=== PATIENT | male | born 1985 | race Caucasian/White ===

== ENCOUNTER 2016-12-14 17:19 | Emergency (ER) | payer OTHER ==
[2016-12-14 17:36] VITALS: BP 135/81; BMI 25.0
--- NOTE | 2016-12-14 19:15 | DR.LACERAT ---
HPI - Time Seen Time seen: 19:15 - Primary Care Physician Primary Care Physician: ZANDER - HPI Comment HPI Comment: SUTURE PLACE YESTERDAY IN [place]. INCREASING PAIN. WORSE WHEN HAND HANG DOWN. NO NEW INJURY. PATIENT SAID HIS PAIN IS CAUSING HIM NOT TO SLEEP. CUT FINGER AT WORK WITH A SAW. - Complaints Chief Complaint Doctors Comments: PAIN LEFT INDEX AND RING FINGER/POST SUTURE PLACEMENT YESTERDAY. Chief Complaint:: PT STATES " HE CUT HIS LEFT INDEX, AND LEFT RING FINGER AND PT WAS SEEN IN ER IN [place] AND HIS LACERATIONS WERE SUTURED.. PT STATES IT IS BLEEDING AND THERE IS AN OPEN AREA AND HER IS HAVING PAIN.. - Reviewed Nurses Notes Reviewed: Yes - Source History Provided: Patient - Mode of Arrival Mode of Arrival: Ambulatory - Timing Onset of Chief Complaint: 12/14/16 - Context Mechanism: denies: Knife (SAW) Circumstance: Work-related Tetanus Vaccination: Yes - Severity Pain Severity: Moderate Bleeding:: Controlled - Associated Signs and Symptoms Associated Signs and Symptoms: None PMH - PMH Past Medical History: Yes Past Medical History Comment: PSORISIS Past Surgical History: No - Family History History of Family Medical Conditions: Yes Family Medical History: Diabetes Mellitus, Cancer, Hypertension - Social History Does patient currently use any type of tobacco product: Yes Have you used tobacco products in the last 12 months: Yes Type of Tobacco Use: Cigarettes How many years tobacco product used: 14 Does any household member use tobacco: No Alcohol Use: None Do you use any recreational Drugs:: No Lives With: Alone Lives Where: Home - infectious screening In the last 2 months have you had wt loss of >10#?: NO Have you had fever, night sweats or hemotysis?: No Have you traveled outside the country in the last 6 months?: No Isolation: Standard ROS - Review of Systems Constitutional: No Symptoms Reported Eyes: No Symptoms Reported ENTM: No Symptoms Reported Respiratoy: No Symptoms Reported Cardiovascular: No Symptoms Reported Gastrointestinal/Abdominal: No Symptoms Reported Genitourinary: No Symptoms Reported Neurological: No Symptoms Reported Musculoskeletal: Left (LEFT INDEX AND RING FINGERS.), Hand Integumentary: Other (FINGER LACERATIONS, POST INJURY.) Hematologic/Lymphatic: No Symptoms Reported Endocrine: No Symptoms Reported All Other Systems: Reviewed and Negative PE - Vital Signs Vitals: Temperature 98.0 F Pulse Rate 75 Respiratory Rate 18 Blood Pressure 135/81 O2 Sat by Pulse Oximetry 98 - General Limitations: No Limitations General Appearance: Alert - Head Head Exam: Normal Inspection - Eyes Eye exam: Normal Appearance - ENT ENT Exam: Normal External Ear Exam - Neck Neck Exam: Trachea Midline - Chest Chest Inspection: Symmetric Chest Wall Rise - Neurologic Neurological Exam: Alert, Oriented X3 - Psychiatric Psychiatric Exam: Anxious - Skin Type of Lesion: Laceration (LT INDEX AND RING FINGERS) - Diagnosis Discharge Problem: Open fracture of finger of left hand Qualifiers: Encounter type: initial encounter Finger: index finger Phalanx: distal Fracture alignment: nondisplaced Qualified Code(s): S62.661B - Nondisplaced fracture of distal phalanx of left index finger, initial encounter for open fracture Laceration of finger of left hand Qualifiers: Encounter type: initial encounter Finger: ring finger Damage to nail status: with damage Foreign body presence: without foreign body Qualified Code(s): S61.315A - Laceration without foreign body of left ring finger with damage to nail, initial encounter - Discharge Plan Disposition: 01 HOME, SELF-CARE Condition: Stable Prescriptions: Acetaminophen with Codeine [Tylenol/Codeine #3 300-30 mg] 1 tab PO Q4-6H PRN # 15 tab PRN Reason: Pain Ibuprofen [MOTRIN TAB 600 MG *] 600 mg PO TID PRN #20 tab PRN Reason: Pain/Inflammation Sulfamethoxazole-Trimethoprim [BACTRIM DS TAB 800/160 MG *] 1 tab PO BID #20 tab - Follow ups/Referrals Follow ups/Referrals: AUBREE SCHNEIDER [STAFF PHYSICIAN] - 1 day Amy FERMIN [Primary Care Provider] - 1 day DEAN MEDEROS [STAFF PHYSICIAN] - 1 day - Instructions Instructions: Laceration Care, Adult, [id number], Finger Fracture Additional Instructions: RETURN TO ED IF WORSE.
[2016-12-14] MEDS ORDERED: TORADOL TAB PO ONE (19:57)
[2016-12-14] MEDS ORDERED: TYLENOL #3 TAB (W/CODEINE) PO ONE (19:57)
[2016-12-14] MEDS ORDERED: BACTRIM DS TAB PO ONE (19:57)
[2016-12-14] MEDS: TORADOL TAB PO ONE (20:00)
[2016-12-14] MEDS: BACTRIM DS TAB PO ONE (20:00)
[2016-12-14] MEDS: TYLENOL #3 TAB (W/CODEINE) PO ONE (20:01)
== END 2016-12-14 20:06 | disposition home or self-care (01) ==
LOC: ER 17:19
DX: S62.661B Nondisplaced fracture of distal phalanx of left index finger, initial encounter for open fracture (principal); S61.315A Laceration without foreign body of left ring finger with damage to nail, initial encounter; W45.8XXA Other foreign body or object entering through skin, initial encounter; Y92.9 Unspecified place or not applicable
CPT/HCPCS: 99283

== ENCOUNTER 2019-01-31 12:11 | Inpatient (IN) ==
[2019-01-31 12:19] VITALS: BMI 28.5
--- NOTE | 2019-01-31 14:34 | DR.EXTPAIN ---
HPI Time seen Time Seen by Provider: 01/31/19 14:20 PCP Primary Care Physician: CHECO HPI Comment HPI Comment: PATIENT IS 33YR OLD MALE IN THE ER WITH INFECTED KNUCKLE FROM INURY 2 WEEKS AGO AND NOW RED, SWOLLEN AND DRAINING PUS. PAIN IS SHARP IN LEFT HAND 8/10 RADIATING TO LEFT FOREARM. PATIENT SAID HE TRY TO DRAIN AT HOME, HE OPEN IT WITH A KNIFE. HE SAID HIS CONDITION IS GETTING WORSE. Complaint/Symptoms Chief Complaint Doctor Comments: LEFT HAND IFECTION AT THE KNUCKLE. DRAINING PUS. Chief Complaint:: TWO WEEKS AGO WORKING ON [employer], SMASHED KNUCKLE. SWOLLEN, RED A ND WARM TO TOUCH. PT STATES THAT PUS CAME OUT OF WOUND. CAN NOT MOVE FINGER OR MAKE FIST WITH LEFT HAND. Self Treatment fo Chief Complaint: TRIED TO TREAT SELF AND DRAIN THE PUS OUT. USED KNIFE TO OPEN UP. Nurses notes reviewed Nurses Notes Review: Yes Source History Provided: Patient Mode of arrival Mode of Arrival: Ambulatory Timing Onset of Chief Complaint: 01/17/19 Context History of: None Associated signs and symptoms Associated Signs and Symptoms: Pain, Swelling and Other (ABSCESS, CELLULITIS LEFT HAND AND FOREARM.) PMH PMH Past Medical History: Yes Past Medical History: Arthritis Past Surgical History: No Family History History of Family Medical Conditions: Yes Family Medical History: Diabetes Mellitus, Cancer and Hypertension Social History Does patient currently use any type of tobacco product: Yes Have you used tobacco products in the last 12 months: Yes Type of Tobacco Use: Cigarettes Does any household member use tobacco: No Alcohol Use: Occasionally Do you use any recreational Drugs:: No Lives With: Alone Lives Where: Home infectious screening In the last 2 months have you had wt loss of >10#?: NO Have you had fever, night sweats or hemotysis?: No Have you traveled outside the country in the last 6 months?: No Isolation: Standard ROS Review of Systems Constitutional: No Symptoms Reported and See HPI; negative Fever, Weakness and Fatigue Eyes: No Symptoms Reported and See HPI ENTM: No Symptoms Reported and See HPI Respiratoy: No Symptoms Reported and See HPI; negative Short of Breath and Wheezing Cardiovascular: No Symptoms Reported and See HPI; negative Chest Pain Gastrointestinal/Abdominal: No Symptoms Reported and See HPI Genitourinary: No Symptoms Reported and See HPI Neurological: No Symptoms Reported and See HPI Musculoskeletal: Left, Forearm and Hand Integumentary: See HPI and Wound (ABSCESS LEFT HAND AND CELLULITIS LEFT HAND AND FOREARM.) Hematologic/Lymphatic: No Symptoms Reported and See HPI Endocrine: No Symptoms Reported and See HPI Psychiatric: No Symptoms Reported and See HPI All Other Systems: Reviewed and Negative PE Vital Signs Vitals: Temperature 98.7 F Pulse Rate [Right Radial] 76 Pulse Rate 20 Respiratory Rate 18 Blood Pressure [Right Arm] 133/87 Blood Pressure 141/92 O2 Sat by Pulse Oximetry 94 General Limitations: No Limitations General Appearance: Alert and In No Apparent Distress Head Head Exam: Normal Inspection and Atraumatic Eyes Eye exam: Normal Appearance and PERRL; negative Scleral Icterus and Conjunctival Injection ENT ENT Exam: Normal Exam, Normal Oropharynx, Normal External Ear Exam and TM's Normal Bilaterally Neck Neck Exam: Normal Inspection and Trachea Midline; negative Tenderness and Lymphadenopathy Chest Chest Inspection: Normal Inspection and Symmetric Chest Wall Rise; negative Tenderness Respiratory Respiratory Exam: Normal Lung Sounds Bilat; negative Accessory Muscle Use, Chest Wall Tenderness and Respiratory Distress Respiratory Exam: Bilateral: Clear to Auscultation Cardiovascular Cardiovascular Exam: Regular Rate, Normal Rhythm and Normal Heart Sounds; negative Systolic Murmur and Diastolic Murmur Abdominal Exam Abdominal Exam: Normal Inspection, Normal Bowel Sounds and Soft; negative Te nderness Extremities Extremities Exam: Normal Inspection, Tenderness (REDNESS. SWELLING AND TENDERNESS LEFT HAND AND FOREARM.) and Normal Capillary Refill; negative Calf Tenderness Upper Extremities Forearm Exam: Tenderness, Swelling and Erythema Hand Exam: Tenderness, Swelling and Erythema Back Back Exam: Normal Inspection Neurological Neurological Exam: Alert, Oriented X3 and CN II-XII Intact; negative Motor Sensory Deficit Psychiatric Psychiatric Exam: Normal Affect and Normal Mood Skin Skin Exam: Erythema Type of Lesion: Abscess Distribution: LUE Description: Tenderness, Erythematous and Swelling MDM Differential Diagnosis Differential Diagnosis: Contusion, Fracture, Sprain and Other (ABSCESS, CELLULITIS.) COURSE Treatment Treatment: SEE ORDER. Education/Counseling Educated On: Diagnosis ROR Labs Reviewed Laboratory Results Reviewed?: Yes Result Diagrams: 02/03/19 04:48 02/03/19 04:48 Laboratory: 01/31/19 15:02 Hand - Left Gram Stain - Final 01/31/19 15:02 Hand - Left Wound Culture - Final Staphylococcus Aureus WBC 10.1 X10^3/uL (3.6-10.0) H 02/01/19 04:33 RBC 4.61 X10^6/uL (4.7-6.0) L 02/01/19 04:33 Hgb 13.9 g/dL (13.5-18.0) 02/01/19 04:33 Hct 39.9 % (42.0-54.0) L 02/01/19 04:33 MCV 86.6 fL (80.0-100.0) 02/01/19 04:33 MCH 30.1 pg (27.0-34.0) 02/01/19 04:33 MCHC 34.8 g/dL (33.0-35.0) 02/01/19 04:33 RDW 13.2 % (11.6-16.5) 02/01/19 04:33 Plt Count 217 X10^3/uL (150.0-450.0) 02/01/19 04:33 MPV 8.5 fL (7.4-11.0) 02/01/19 04:33 Neut % (Auto) 58.8 % (42.0-75.0) 02/01/19 04:33 Lymph % (Auto) 24.8 % (21.0-51.0) 02/01/19 04:33 [place] % (Auto) 11.6 % (0.0-13.0) 02/01/19 04:33 Eos % (Auto) 4.2 % (0.9-2.9) H 02/01/19 04:33 Baso % (Auto) 0.6 % (0.2-1.0) 02/01/19 04:33 Neut # (Auto) 5.9 x10^3/uL (2.2-4.8) H 02/01/19 04:33 Lymph # (Auto) 2.5 X10^3/uL (1.3-2.9) 02/01/19 04:33 [place] # (Auto) 1.2 x10^3/uL (0.3-0.8) H 02/01/19 04:33 Eos # (Auto) 0.4 x10^3/uL (0.0-0.2) H 02/01/19 04:33 Baso # (Auto) 0.1 X10^3/uL (0.0-0.1) 02/01/19 04:33 Absolute Nucleated RBC 0.1 /100WBC 02/01/19 04:33 Sodium 138 mmol/L (136-145) 02/01/19 04:33 Corrected Sodium TNP 02/01/19 04:33 Potassium 3.7 mmol/L (3.5-5.1) 02/01/19 04:33 Chloride 104 mmol/L (98-107) 02/01/19 04:33 Carbon Dioxide 23.2 mmol/L (21-32) 02/01/19 04:33 BUN 10 mg/dL (7-18) 02/01/19 04:33 Creatinine 0.93 mg/dL (0.70-1.30) 02/01/19 04:33 Est GFR (MDRD) Af Amer > 60 (>60) 02/01/19 04:33 Est GFR (MDRD) Non-Af > 60 (>60) 02/01/19 04:33 Glucose 106 mg/dL (65-99) H 02/01/19 04:33 Calcium 8.3 mg/dL (8.5-10.1) L 02/01/19 04:33 Corrected Calcium TNP 02/01/19 04:33 Total Bilirubin 0.40 mg/dL (0.2-1.0) 02/01/19 04:33 AST 15 Units/L (15-37) 02/01/19 04:33 ALT 16 Units/L (12-78) 02/01/19 04:33 Alkaline Phosphatase 59 Units/L (46-116) 02/01/19 04:33 Total Protein 7.3 g/dL (6.4-8.2) 02/01/19 04:33 Albumin 3.7 g/dL (3.4-5.0) 02/01/19 04:33 Globulin 3.6 g/dL (2.5-4.5) 02/01/19 04:33 Albumin/Globulin Ratio 1.0 Ratio (1.1-2.1) L 02/01/19 04:33 XRAY XRAY Interpreted by: Radiologist XRAY Findings: REPORT NOTED AND DISCUSS WITH PATIENT. Opioid Opioid Risk Tool Age (Teto box if 16-45): No Total: 0 Total Score Risk Category: Low Risk Copyright: Manuel NELSON predicting aberrant behaviors Instructions Instructions: Skin Abscess, [id number] Cellulitis, Adult, [id number] Pain Medicine Instructions Forms: Excuse From Work or School
[2019-01-31 14:43] LABS: BASOPHILS # (AUTO) 0.1 X10^3/uL (0.0-0.1); BASOPHILS % (AUTO) 0.8 % (0.2-1.0); EOSINOPHILS # (AUTO) 0.3 x10^3/uL (0.0-0.2); LYMPHOCYTES # (AUTO) 2.4 X10^3/uL (1.3-2.9); LYMPHOCYTES % (AUTO) 23.3 % (21.0-51.0); MEAN CORPUSCULAR HEMOGLOBIN 30.2 pg (27.0-34.0); MEAN CORPUSCULAR VOLUME 86.4 fL (80.0-100.0); MEAN PLATELET VOLUME 7.7 fL (7.4-11.0); MONOCYTES # (AUTO) 0.9 x10^3/uL (0.3-0.8); MONOCYTES % (AUTO) 8.7 % (0.0-13.0); NEUTROPHILS # (AUTO) 6.7 x10^3/uL (2.2-4.8); NEUTROPHILS % (AUTO) 64.2 % (42.0-75.0); PLATELET COUNT 253 X10^3/uL (150.0-450.0); RED BLOOD COUNT 4.97 X10^6/uL (4.7-6.0); RED CELL DISTRIBUTION WIDTH 13.3 % (11.6-16.5); WHITE BLOOD COUNT 10.5 X10^3/uL (3.6-10.0)
--- NOTE | 2019-01-31 14:52 | RAD ---
HISTORY: Patient smashed forearm and hand while working on [employer]. Complains of left 5th digit and left forearm pain. Study: Two-view left forearm Comparison: No priors Findings: No fracture, dislocation or radiopaque foreign body is seen. The elbow wrist joints appear well maintained. There is a small benign osteoma involving the lateral distal humerus region. Soft tissues appear to be swollen proximally. IMPRESSION: Mild soft tissue swelling without fracture, dislocation or radiopaque foreign body. Reported By:
[2019-01-31 14:53] LABS: ALANINE AMINOTRANSFERASE 19 Units/L (12-78); ALBUMIN 4.5 g/dL (3.4-5.0); ALKALINE PHOSPHATASE 67 Units/L (46-116); ASPARTATE AMINO TRANSFERASE 16 Units/L (15-37); BLOOD UREA NITROGEN 10 mg/dL (7-18); CALCIUM 9.1 mg/dL (8.5-10.1); CARBON DIOXIDE 28.4 mmol/L (21-32); CHLORIDE 103 mmol/L (98-107); CREATININE 0.91 mg/dL (0.70-1.30); SODIUM 140 mmol/L (136-145); TOTAL PROTEIN 8.5 g/dL (6.4-8.2); eGFR NON BLACK RACES > 60 (>60)
--- NOTE | 2019-01-31 14:54 | RAD ---
HISTORY: Patient smashed left hand while working on [employer]. Pain. Study: Three-view left Comparison: No priors Findings: There is subcutaneous air and soft tissue swelling indicating penetrating injury the region medial to the left 5th MCP joint. No fracture, dislocation or radiopaque foreign body is seen. There is a deformity of the distal phalanx of the left index finger which is likely from a more remote injury. On the lateral view, soft tissue swelling extends to involve the entire dorsum the metacarpals. IMPRESSION: Evidence of penetrating injury just medial to the left 5th MCP joint. There is dorsal soft tissue swelling of the entire hand. No fracture, dislocation or radiopaque foreign body is seen. The deformed appearance of the distal phalanx of the left index finger is likely secondary to a more remote injury. Reported By:
[2019-01-31] MEDS ORDERED: VANCOMYCIN HCL 1 G in D5W 250 ML IV 250 ML IV ONE (16:22)
[2019-01-31] MEDS ORDERED: VANCOMYCIN HCL ONE (16:24)
[2019-01-31] MEDS ORDERED: NS 250 ML IV 250 ML ONE (16:24)
[2019-01-31] MEDS ORDERED: ZOFRAN TAB 4 MG PO PRN (16:48)
[2019-01-31] MEDS ORDERED: BACTRIM DS TAB PO ONE (16:48)
[2019-01-31] MEDS ORDERED: MOTRIN TAB 600 MG PO PRN (16:48)
[2019-01-31] MEDS ORDERED: TORADOL 30 MG VIAL IVP PRN (16:56)
[2019-01-31] MEDS: NS 1000 ML 1,000 ML IV SCH (18:35)
[2019-01-31] MEDS: ROXICODONE TAB 5 MG PO SCH (21:04)
[2019-01-31] MEDS: PERCOCET TAB 5/325 MG PO SCH (21:04)
[2019-02-01] MEDS: NS 1000 ML 1,000 ML IV SCH ×4 (02:44→22:36)
[2019-02-01 05:26] LABS: BASOPHILS # (AUTO) 0.1 X10^3/uL (0.0-0.1); BASOPHILS % (AUTO) 0.6 % (0.2-1.0); EOSINOPHILS # (AUTO) 0.4 x10^3/uL (0.0-0.2); EOSINOPHILS % (AUTO) 4.2 % (0.9-2.9); HEMATOCRIT 39.9 % (42.0-54.0); HEMOGLOBIN 13.9 g/dL (13.5-18.0); LYMPHOCYTES # (AUTO) 2.5 X10^3/uL (1.3-2.9); LYMPHOCYTES % (AUTO) 24.8 % (21.0-51.0); MEAN CORPUSCULAR HEMOGLOBIN 30.1 pg (27.0-34.0); MEAN CORPUSCULAR HGB CONC 34.8 g/dL (33.0-35.0); MEAN CORPUSCULAR VOLUME 86.6 fL (80.0-100.0); MEAN PLATELET VOLUME 8.5 fL (7.4-11.0); MONOCYTES # (AUTO) 1.2 x10^3/uL (0.3-0.8); MONOCYTES % (AUTO) 11.6 % (0.0-13.0); NEUTROPHILS # (AUTO) 5.9 x10^3/uL (2.2-4.8); NEUTROPHILS % (AUTO) 58.8 % (42.0-75.0); PLATELET COUNT 217 X10^3/uL (150.0-450.0); RED BLOOD COUNT 4.61 X10^6/uL (4.7-6.0); RED CELL DISTRIBUTION WIDTH 13.2 % (11.6-16.5); WHITE BLOOD COUNT 10.1 X10^3/uL (3.6-10.0)
[2019-02-01 05:41] LABS: ALANINE AMINOTRANSFERASE 16 Units/L (12-78); ALBUMIN 3.7 g/dL (3.4-5.0); ALKALINE PHOSPHATASE 59 Units/L (46-116); ASPARTATE AMINO TRANSFERASE 15 Units/L (15-37); BLOOD UREA NITROGEN 10 mg/dL (7-18); CALCIUM 8.3 mg/dL (8.5-10.1); CARBON DIOXIDE 23.2 mmol/L (21-32); CHLORIDE 104 mmol/L (98-107); CREATININE 0.93 mg/dL (0.70-1.30); SODIUM 138 mmol/L (136-145); TOTAL PROTEIN 7.3 g/dL (6.4-8.2); eGFR NON BLACK RACES > 60 (>60)
[2019-02-01] MEDS: ROXICODONE TAB 5 MG PO SCH ×3 (05:42→21:16)
[2019-02-01] MEDS: PERCOCET TAB 5/325 MG PO SCH ×3 (05:42→21:16)
[2019-02-01] MEDS: LEVAQUIN PREMIX IV 750 MG 750 MG/150 ML BAG IV SCH ×2 (08:52→10:15)
[2019-02-01] MEDS: VANCOMYCIN HCL 1 G in D5W 250 ML IV 250 ML IV SCH ×2 (08:54→21:16)
[2019-02-01] MEDS ORDERED: XYLOCAINE 1 % (PLAIN) ONE (10:15)
[2019-02-01] MEDS: NICOTINE PATCH TD SCH (13:34)
[2019-02-01] MEDS ORDERED: FLEXERIL TAB 10 MG PO PRN (14:58)
--- NOTE | 2019-02-01 15:03 | DR.H&P ---
H&P - History & Physical for Day of: H&P Date: 02/01/19 - Chief Complaint Chief Complaint: LEFT HAND ABSCESS, WITH REDNESS, PAIN AND SWELLING - History of Present Illness History of Present Illness: 33 WM ER ADMISSION AFTER PRESENTING WITH CO OF WEEKS AGO WORKING ON [employer], [employer]. SWOLLEN, RED AND WARM TO TOUCH. PT STATES THAT PUS CAME OUT OF WOUND. CAN NOT MOVE FINGER OR MAKE FIST WITH LEFT HAND. PT IS SMOKER, HX OF ELEVATED BP NOT CURRENTLY ON ANY PRESCIPTION MEDICATION. PT ADMITTED FOR TREATMENT WITH IV ANTIBIOTICS AND SURGICAL CONSULTATION - Past Medical History Past Medical History: Arthritis - Past Surgical History Surgical History: Unknown - Family History Family Medical History: Diabetes Mellitus, Cancer, Hypertension - Social History Does patient currently use any type of tobacco product: Yes Have you used tobacco products in the last 12 months: Yes Type of Tobacco Use: None How many years tobacco product used: 15 Does any household member use tobacco: No Alcohol Use: Occasionally Drug Use: None - Medications Home Medications: cefaclor [From [facility]] Allergy (Verified 12/14/16 17:35) CONTINUE taking the following medications cyclobenzaprine 10 mg PO TID PRN 01/31/19 [History] gabapentin 300 mg PO DAILY 01/31/19 [History] omeprazole 40 mg PO DAILY 01/31/19 [History] oxycodone-acetaminophen 1 tab PO TID 01/31/19 [History] - Review of Systems Constitutional: Weakness Eyes: No Symptoms Reported ENT: No Symptoms Reported Respiratory: No Symptoms Reported Cardiovascular: No Symptoms Reported Gastrointestinal: Nausea Genitourinary: No Symptoms Reported Musculoskeletal: Hand Pain Skin: Wound Neurological: No Symptoms Reported - Physical Exam Vital Signs: Temperature 98.5 F Pulse Rate [Right Radial] 59 Pulse Rate 20 Respiratory Rate 20 Blood Pressure [Right Arm] 137/78 Blood Pressure 141/92 O2 Sat by Pulse Oximetry 98 Oriented: Normal Eyes: Normal Ear: Normal Nose: Normal Throat: Normal Respiratory: RLL Diminished, LLL Diminished Cardiovascular: Normal : Normal Auscultation: Bowel Sounds: Normal Palpation: Normal Tenderness: Normal Skin: Red, Tender, Hot, Wound (BASE LEFT 5TH FINGER, 3CM ABSCESS FORMATION WITH REDNESS EXTENDING TO FOREARM, DIFFUSE EDEMA) Musculoskeletal: Left, Hand, Swelling, Tender Psychiatric: Anxiety Affect: Anxious Speech Pattern: Clear, Appropriate - Assessment/Plan (1) Cellulitis of left hand Status: Acute Plan: ADMIT, IV VANCOMYCIN. IV HYDRATION, WOUND CULTURE. BLOOD CULTURES. XRAY IN ER, SURGICAL CONSULTATION (2) Abscess of hand, left Status: Acute (3) Open fracture of finger of left hand Qualifiers: Encounter type: initial encounter Finger: index finger Phalanx: distal Fracture alignment: nondisplaced Qualified Code(s): S62.661B - Nondisplaced fracture of distal phalanx of left index finger, initial encounter for open fracture Status: Acute (4) Laceration of finger of left hand Qualifiers: Encounter type: initial encounter Finger: ring finger Damage to nail status: with damage Foreign body presence: without foreign body Qualified Code(s): S61.315A - Laceration without foreign body of left ring finger with damage to nail, initial encounter Status: Acute - Allergies Allergies/Adverse Reactions: Allergies Allergy/AdvReac Type Severity Reaction Status Date / Time cefaclor [From [facility]] Allergy Verified 12/14/16 17:35
[2019-02-01] MEDS: NEURONTIN CAP 300 MG PO SCH (17:40)
[2019-02-01] MEDS: PriLOSEC PO SCH (17:41)
--- NOTE | 2019-02-01 17:56 | DR.PROGNOT ---
Hospital Progress Notes - Progress Note for Day of: Progress Note Date: 02/01/19 - Chief Complaint Chief Complaint: Lt hand abscess was debrided and drained . packed with Iodoform . will keep the hand elevated and same IV ATB awaiting final culture report . - Past Medical Family Social History Past Med/Fam/Surg Hx: No changes since H&P Allergies: Allergies cefaclor [From [facility]] Allergy (Verified 12/14/16 17:35) - Review Of Systems ROS: No change since H&P - Vital Signs Vital Signs: Temperature 98.3 F Pulse Rate [Right Radial] 82 Pulse Rate 20 Respiratory Rate 18 Blood Pressure [Right Arm] 127/83 Blood Pressure 141/92 O2 Sat by Pulse Oximetry 98 - Physical Exam Oriented: Normal Eyes: Normal Ear: Normal Nose: Normal Throat: Normal Cardiovascular: Normal : Normal GI:Auscultation: Normal GI:Palpation: Normal GI: Tenderness: Normal Skin: Red, Tender, Hot, Wound (BASE LEFT 5TH FINGER, 3CM ABSCESS FORMATION WITH erythema EXTENDING TO FOREARM, DIFFUSE EDEMA) Musculoskeletal: Left, Hand, Swelling, Tender Psychiatric: Anxiety Affect: Anxious Speech Pattern: Clear, Appropriate - Laboratory and Diagnostics Result Diagrams: 02/01/19 04:33 02/01/19 04:33 Labs: 01/31/19 15:02 Hand - Left Gram Stain - Final 01/31/19 15:02 Hand - Left Wound Culture - Preliminary Laboratory WBC 10.1 X10^3/uL (3.6-10.0) H 02/01/19 04:33 RBC 4.61 X10^6/uL (4.7-6.0) L 02/01/19 04:33 Hgb 13.9 g/dL (13.5-18.0) 02/01/19 04:33 Hct 39.9 % (42.0-54.0) L 02/01/19 04:33 MCV 86.6 fL (80.0-100.0) 02/01/19 04:33 MCH 30.1 pg (27.0-34.0) 02/01/19 04:33 MCHC 34.8 g/dL (33.0-35.0) 02/01/19 04:33 RDW 13.2 % (11.6-16.5) 02/01/19 04:33 Plt Count 217 X10^3/uL (150.0-450.0) 02/01/19 04:33 MPV 8.5 fL (7.4-11.0) 02/01/19 04:33 Neut % (Auto) 58.8 % (42.0-75.0) 02/01/19 04:33 Lymph % (Auto) 24.8 % (21.0-51.0) 02/01/19 04:33 [place] % (Auto) 11.6 % (0.0-13.0) 02/01/19 04:33 Eos % (Auto) 4.2 % (0.9-2.9) H 02/01/19 04:33 Baso % (Auto) 0.6 % (0.2-1.0) 02/01/19 04:33 Neut # (Auto) 5.9 x10^3/uL (2.2-4.8) H 02/01/19 04:33 Lymph # (Auto) 2.5 X10^3/uL (1.3-2.9) 02/01/19 04:33 [place] # (Auto) 1.2 x10^3/uL (0.3-0.8) H 02/01/19 04:33 Eos # (Auto) 0.4 x10^3/uL (0.0-0.2) H 02/01/19 04:33 Baso # (Auto) 0.1 X10^3/uL (0.0-0.1) 02/01/19 04:33 Absolute Nucleated RBC 0.1 /100WBC 02/01/19 04:33 Sodium 138 mmol/L (136-145) 02/01/19 04:33 Corrected Sodium TNP 02/01/19 04:33 Potassium 3.7 mmol/L (3.5-5.1) 02/01/19 04:33 Chloride 104 mmol/L (98-107) 02/01/19 04:33 Carbon Dioxide 23.2 mmol/L (21-32) 02/01/19 04:33 BUN 10 mg/dL (7-18) 02/01/19 04:33 Creatinine 0.93 mg/dL (0.70-1.30) 02/01/19 04:33 Est GFR (MDRD) Af Amer > 60 (>60) 02/01/19 04:33 Est GFR (MDRD) Non-Af > 60 (>60) 02/01/19 04:33 Glucose 106 mg/dL (65-99) H 02/01/19 04:33 Calcium 8.3 mg/dL (8.5-10.1) L 02/01/19 04:33 Corrected Calcium TNP 02/01/19 04:33 Total Bilirubin 0.40 mg/dL (0.2-1.0) 02/01/19 04:33 AST 15 Units/L (15-37) 02/01/19 04:33 ALT 16 Units/L (12-78) 02/01/19 04:33 Alkaline Phosphatase 59 Units/L (46-116) 02/01/19 04:33 Total Protein 7.3 g/dL (6.4-8.2) 02/01/19 04:33 Albumin 3.7 g/dL (3.4-5.0) 02/01/19 04:33 Globulin 3.6 g/dL (2.5-4.5) 02/01/19 04:33 Albumin/Globulin Ratio 1.0 Ratio (1.1-2.1) L 02/01/19 04:33 - Assessment and Plan 1: cellulitis with abscess formation medial and dorsal aspect Lt hand . same local careand IV ATB . hand elevation . - Problem Patient Problems: Patient Problems Cellulitis of left hand (Acute) L03.114 Abscess of hand, left (Acute) L02.512
[2019-02-02] MEDS: NS 1000 ML 1,000 ML IV SCH ×3 (01:03→23:04)
[2019-02-02 05:20] LABS: BASOPHILS # (AUTO) 0.1 X10^3/uL (0.0-0.1); EOSINOPHILS # (AUTO) 0.4 x10^3/uL (0.0-0.2); EOSINOPHILS % (AUTO) 5.3 % (0.9-2.9); HEMOGLOBIN 13.9 g/dL (13.5-18.0); LYMPHOCYTES # (AUTO) 3.1 X10^3/uL (1.3-2.9); LYMPHOCYTES % (AUTO) 37.5 % (21.0-51.0); MEAN CORPUSCULAR HEMOGLOBIN 30.3 pg (27.0-34.0); MEAN CORPUSCULAR HGB CONC 34.9 g/dL (33.0-35.0); MEAN CORPUSCULAR VOLUME 86.9 fL (80.0-100.0); MEAN PLATELET VOLUME 8.3 fL (7.4-11.0); MONOCYTES # (AUTO) 0.9 x10^3/uL (0.3-0.8); NEUTROPHILS # (AUTO) 3.8 x10^3/uL (2.2-4.8); NEUTROPHILS % (AUTO) 45.2 % (42.0-75.0); PLATELET COUNT 228 X10^3/uL (150.0-450.0); RED CELL DISTRIBUTION WIDTH 13.2 % (11.6-16.5); WHITE BLOOD COUNT 8.3 X10^3/uL (3.6-10.0)
[2019-02-02 05:36] LABS: ALANINE AMINOTRANSFERASE 22 Units/L (12-78); ALBUMIN 3.6 g/dL (3.4-5.0); ALKALINE PHOSPHATASE 65 Units/L (46-116); ASPARTATE AMINO TRANSFERASE 19 Units/L (15-37); BLOOD UREA NITROGEN 7 mg/dL (7-18); CALCIUM 8.3 mg/dL (8.5-10.1); CARBON DIOXIDE 22.6 mmol/L (21-32); CHLORIDE 106 mmol/L (98-107); CREATININE 0.87 mg/dL (0.70-1.30); SODIUM 139 mmol/L (136-145); TOTAL PROTEIN 7.4 g/dL (6.4-8.2); eGFR NON BLACK RACES > 60 (>60)
[2019-02-02] MEDS: PERCOCET TAB 5/325 MG PO SCH ×3 (06:32→22:02)
[2019-02-02] MEDS: ROXICODONE TAB 5 MG PO SCH ×3 (06:32→22:02)
[2019-02-02 07:39] LABS: CREATININE 0.96 mg/dL (0.70-1.30); VANCOMYCIN,TROUGH 4.9 ug/mL (15-20)
[2019-02-02] MEDS: VANCOMYCIN HCL 1 G in D5W 250 ML IV 250 ML IV SCH ×2 (09:10→22:04)
[2019-02-02] MEDS: PriLOSEC PO SCH (09:10)
[2019-02-02] MEDS: NEURONTIN CAP 300 MG PO SCH (09:11)
[2019-02-02] MEDS: NICOTINE PATCH TD SCH (09:11)
[2019-02-02] MEDS: LEVAQUIN PREMIX IV 750 MG 750 MG/150 ML BAG IV SCH (11:12)
[2019-02-02] MEDS ORDERED: PHENERGAN TAB 25 MG PO PRN (12:51)
[2019-02-02] MEDS: BACTROBAN CREAM TOP SCH ×2 (18:38→22:04)
[2019-02-03] MEDS: NS 1000 ML 1,000 ML IV SCH ×2 (01:02→10:41)
[2019-02-03] MEDS: PHARMACY COMMENT IV NR ×2 (01:04→01:06)
[2019-02-03 05:31] LABS: BASOPHILS # (AUTO) 0.1 X10^3/uL (0.0-0.1); BASOPHILS % (AUTO) 1.6 % (0.2-1.0); EOSINOPHILS # (AUTO) 0.5 x10^3/uL (0.0-0.2); EOSINOPHILS % (AUTO) 7.2 % (0.9-2.9); HEMATOCRIT 39.1 % (42.0-54.0); HEMOGLOBIN 13.6 g/dL (13.5-18.0); LYMPHOCYTES # (AUTO) 2.8 X10^3/uL (1.3-2.9); LYMPHOCYTES % (AUTO) 41.8 % (21.0-51.0); MEAN CORPUSCULAR HEMOGLOBIN 30.6 pg (27.0-34.0); MEAN CORPUSCULAR HGB CONC 34.8 g/dL (33.0-35.0); MEAN CORPUSCULAR VOLUME 87.9 fL (80.0-100.0); MEAN PLATELET VOLUME 8.3 fL (7.4-11.0); MONOCYTES # (AUTO) 0.7 x10^3/uL (0.3-0.8); MONOCYTES % (AUTO) 10.7 % (0.0-13.0); NEUTROPHILS # (AUTO) 2.6 x10^3/uL (2.2-4.8); NEUTROPHILS % (AUTO) 38.7 % (42.0-75.0); PLATELET COUNT 238 X10^3/uL (150.0-450.0); RED BLOOD COUNT 4.45 X10^6/uL (4.7-6.0); RED CELL DISTRIBUTION WIDTH 12.8 % (11.6-16.5); WHITE BLOOD COUNT 6.8 X10^3/uL (3.6-10.0)
[2019-02-03] MEDS: BACTROBAN CREAM TOP SCH (05:31)
[2019-02-03] MEDS: PERCOCET TAB 5/325 MG PO SCH (05:31)
[2019-02-03] MEDS: ROXICODONE TAB 5 MG PO SCH (05:32)
[2019-02-03 05:48] LABS: ALANINE AMINOTRANSFERASE 28 Units/L (12-78); ALBUMIN 3.4 g/dL (3.4-5.0); ALKALINE PHOSPHATASE 65 Units/L (46-116); ASPARTATE AMINO TRANSFERASE 24 Units/L (15-37); BLOOD UREA NITROGEN 7 mg/dL (7-18); CALCIUM 8.6 mg/dL (8.5-10.1); CARBON DIOXIDE 26.7 mmol/L (21-32); CHLORIDE 104 mmol/L (98-107); CREATININE 0.99 mg/dL (0.70-1.30); SODIUM 139 mmol/L (136-145); TOTAL PROTEIN 7.1 g/dL (6.4-8.2); eGFR NON BLACK RACES > 60 (>60)
[2019-02-03] MEDS: LEVAQUIN PREMIX IV 750 MG 750 MG/150 ML BAG IV SCH (08:36)
[2019-02-03] MEDS: PriLOSEC PO SCH (08:37)
[2019-02-03] MEDS: NICOTINE PATCH TD SCH (08:37)
[2019-02-03] MEDS: NEURONTIN CAP 300 MG PO SCH (08:37)
[2019-02-03] MEDS: VANCOMYCIN HCL 1 G in D5W 250 ML IV 250 ML IV SCH (08:37)
[2019-02-03 12:51] VITALS: BP 134/83
== END 2019-02-03 13:25 | disposition home or self-care (01) | DRG 982 ==
LOC: MED/SURG 12:11 → ER 12:11 → MED/SURG 17:01
PROVIDERS: ADMIT Internal Medicine; ATTEND Internal Medicine
DX: Y92.9 Unspecified place or not applicable; X58.XXXA Exposure to other specified factors, initial encounter; S61.412A Laceration without foreign body of left hand, initial encounter; B95.61 Methicillin susceptible Staphylococcus aureus infection as the cause of diseases classified elsewhere; L02.512 Cutaneous abscess of left hand; L03.114 Cellulitis of left upper limb
CPT/HCPCS: 36415; 73090; 73130; 80053; 80202; 82565; 85025; 87040; 87070; 87075; 87077; 87186; 87205; 96365; 96367; 99284; A4222; G0378; J1956; J3370; J3490; J7030; J7050; J7060